=== PATIENT | male | born 1955 | race Caucasian/White ===

== ENCOUNTER 2019-03-07 17:54 | Inpatient (IN) | payer MEDICARE ==
[~2019-03-07] VITALS: Ht 175.3 cm; Wt 86.6 kg
--- NOTE | ~2019-03-07 | CON ---
[address] [address] CONSULTATION Name: FELIPE CHUN Room: [address] [place] .#: [id number] Admission: 03/07/19 Attend Phys: Gloria Garcia Discharge: 03/08/19 Date of : 55 Report #: [id number] THIS REPORT FOR: //name// CC: Curtis Fraser DATE OF SERVICE: 03/08/2019 CHIEF COMPLAINT: Chest pain and shortness of breath. HISTORY OF PRESENT ILLNESS: The patient is a 63-year-old smoker with history of 3-vessel CABG three years ago at [facility], had an episode of chest pressure. He took 1 nitroglycerin and his symptoms were partially relieved and by the time he got to the Emergency Room, his symptoms resolved completely. He was admitted for observation. Overnight, his first troponin is normal and second set is pending. His presenting ECG showed a sinus rhythm with nonspecific findings. Over the night, he has not had any more chest pain. This morning, he is symptom free. He has no complaints of chest pain or pressure. He denies orthopnea or PND. He has chronic dyspnea with exertion. He is still an active smoker. He has a pending stress test on Sunday with his usual tower erector helper, Dr. Holman, at [facility] as well as a pulmonary evaluation as the patient as noted above has significant smoking history. 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 We do not have any records, but most recently revascularization with 3-vessel bypass at [facility], which went well according to the patient. He has tobacco use history, hypertension, hyperlipidemia, diabetes mellitus. He has had remote PE. HOME MEDICATIONS: Include aspirin, losartan 25 mg daily, meloxicam, Lexapro, lovastatin 20 mg daily, metformin, metoprolol, albuterol, Atrovent, Symbicort. ALLERGIES: CODEINE. SOCIAL HISTORY: He is and he is a 1 pack per day smoker. REVIEW OF SYSTEMS: [address] [address] CONSULTATION Name: FELIPE CHUN Room: [address]#: [id number] Admission: 03/07/19 Attend Phys: Gloria Garcia Discharge: 03/08/19 Date of : 55 Report #: [id number] GENERAL: No fevers or chills. PULMONARY: No wheezing or cough. Positive dyspnea with exertion. CARDIOVASCULAR: Positive chest pain x 1. No orthopnea. No edema. ENDOCRINE: Positive diabetes. GASTROINTESTINAL: No nausea, vomiting, hematemesis or melena. GENITOURINARY: No dysuria or hematuria. HEMATOLOGIC: No anemia or bleeding disorders. RENAL: No history of kidney failure. PSYCHIATRIC: Positive depression, no anxiety. SKIN: Has no rashes. EYES: He does use glasses. EARS, NOSE, THROAT AND MOUTH: No decreased hearing. No bleeding from nose. Positive dentures. PHYSICAL EXAMINATION: VITAL SIGNS: Blood pressure is 137/83, pulse of 66, oximetry 98% on nasal cannula 1 liter. GENERAL: This is an obese, middle-aged male. He is alert, oriented, in no apparent distress. NECK: Supple. No jugular venous distention. CARDIOVASCULAR: Regular. I cannot hear a murmur or S3. LUNGS: Clear to auscultation bilaterally. ABDOMEN: Soft, nontender, nondistended. EXTREMITIES: No peripheral edema. SKIN: Warm and dry. Chest x-ray shows no acute cardiopulmonary process. IMPRESSION: 1. Chest pain and shortness of breath. I have arranged for further evaluation with a V/Q scan or pulmonary CTA given his remote history of pulmonary embolism. He is scheduled for a nuclear stress test this Sunday and to follow up with his usual tower erector helper on Sunday and I think this is reasonable as well. He is ruling out for myocardial infarction. We will check another cardiac troponin level. His resting ECG is unremarkable. 2. Tobacco use. Cessation is recommended. 3. Hypertension, stable. 4. Diabetes mellitus. He is on oral therapy. By: [id number] Arzate MD, FACC /nt
[2019-03-07 17:58] VITALS: BP 118/73
[2019-03-07 18:21] LABS: ABSOLUTE BASOPHILS 0.3 thou/uL (0.0-0.2); ABSOLUTE EOSINOPHILS 0.4 thou/uL (0.0-0.7); ABSOLUTE LYMPHOCYTES 5.3 thou/uL (0.8-5.3); ABSOLUTE MONOCYTES 1.1 thou/uL (0.0-1.2); ABSOLUTE NEUTROPHILS 5.3 thou/uL (1.6-8.1); BASOPHILS 2.1 %; EOSINOPHILS 3.3 %; HEMATOCRIT 40.3 % (42.0-52.0); HEMOGLOBIN 13.2 gm/dL (14.0-18.0); LYMPHOCYTES 43.2 %; MCH 28.4 pg (26.0-34.0); MCHC 32.9 g/dL (28.0-37.0); MCV 86.4 fL (80.0-100.0); MONOCYTES 8.9 %; MPV 9.1 fl. (7.2-11.1); NUCLEATED RBCS 0 /100WBC; PLATELET COUNT* 219 thou/uL (150-400); POLYS 42.5 %; RBC 4.67 mil/uL (4.50-6.00); RDW-CV 15.8 % (10.5-14.5); WBC 12.3 thou/uL (4.0-11.0)
[2019-03-07] MEDS ORDERED: ZANTAC 150MG T150 MG PO (18:29)
[2019-03-07] MEDS ORDERED: ASPIR 8181 M1 PO (18:29)
[2019-03-07] MEDS ORDERED: NORCO 10-325 T1 EACH PO (18:29)
[2019-03-07] MEDS ORDERED: MOBIC15 MG PO (18:30)
[2019-03-07] MEDS ORDERED: LOVASTATIN 20 M20 MG PO (18:30)
[2019-03-07] MEDS ORDERED: COZAAR 25 MG TA25 M2 PO (18:30)
[2019-03-07] MEDS ORDERED: HYZAAR 50-12.51 EACH PO (18:30)
[2019-03-07] MEDS ORDERED: LEXAPRO 10 MG T10 M1 PO (18:30)
[2019-03-07] MEDS ORDERED: SYMBICORT160 MCG/4. INH (18:31)
[2019-03-07] MEDS ORDERED: LOPRESSOR50 PO (18:31)
[2019-03-07] MEDS ORDERED: EXCEDRIN MIGRA1 EAC1 PO (18:32)
[2019-03-07] MEDS ORDERED: SPIRIVA INH (18:32)
[2019-03-07] MEDS ORDERED: IPRATROPIU0.2 MG/1 M INH (18:32)
[2019-03-07 18:33] LABS: APTT 27.6 Seconds (25.0-31.3); PROTIME 9.8 Seconds (9.20-11.50)
[2019-03-07] MEDS ORDERED: TYLENOL PM EX-1 EACH PO (18:33)
[2019-03-07 18:39] LABS: ANION GAP 12 mmol/L (7-16); BUN 27 mg/dL (7-18); CALCIUM 8.7 mg/dL (8.5-10.1); CHLORIDE 101 mmol/L (98-107); CO2 24 mmol/L (21-32); CREATININE 1.6 mg/dL (0.6-1.3); GLUCOSE 141 mg/dL (70-99); SODIUM 137 mmol/L (136-145)
[2019-03-07 18:43] LABS: ALBUMIN 3.7 g/dL (3.4-5.0); ALKALINE PHOSPHATASE 108 U/L (46-116); SGOT 18 U/L (15-37); SGPT 27 U/L (30-65); TOTAL BILIRUBIN 0.3 mg/dL (<0.1-1.0); TOTAL PROTEIN 7.1 g/dL (6.4-8.2); TROPONIN-I LEVEL <0.06 ng/mL (<0.06)
[2019-03-07 22:21] VITALS: BP 131/77
[2019-03-07 22:30] VITALS: BP 138/80
[2019-03-08 04:00] VITALS: BP 108/56
[2019-03-08 08:00] VITALS: BP 137/83
[2019-03-08] MEDS ORDERED: RANITIDINE 150150 M1 PO (12:30)
[2019-03-08] MEDS ORDERED: SPIRIVA INH (12:32)
[2019-03-08 12:37] VITALS: BP 136/83
[2019-03-08] MEDS ORDERED: COLACE100 MG PO (16:09)
[2019-03-08] MEDS ORDERED: MIRALAX17 GM PO (16:10)
[2019-03-08 17:27] VITALS: BP 140/74
[2019-03-08] MEDS ORDERED: METFORMIN HCL500 MG PO (17:29)
[2019-03-08 17:33] VITALS: BP 140/74
[2019-03-08 17:56] VITALS: BP 140/74
--- NOTE | 2019-03-10 16:40 | EKG ---
[place] [address] ELECTROCARDIOGRAM REPORT Name: FELIPE CHUN Room: [address] [place] [facility]#: [id number] Admission: 03/07/19 Attend Phys: Gloria Gracia Discharge: 03/08/19 Date of : 55 Report #: [id number] THIS REPORT FOR: //name// [facility] ED Test Date: 2019-03-07 Test Time: 17:56:06 Pat Name: FELIPE CHUN Department: Room: [facility] Gender: M Vp Cardiovascular Service Line: TERE : 1955 Requested By: Patricia Kenny Order Number: [id number] MD: Gilles Irizarry Measurements Intervals [place] Rate: 72 P: 17 LA: 131 QRS: -37 QRSD: 99 T: 4 QT: 419 QTc: 459 Interpretive Statements Sinus rhythm Left axis deviation Anteroseptal infarct, old No previous ECG available for comparison Electronically Signed On 03-10-2019 16:40:05 CDT by Gilles Irizarry [email or web address] <ELECTRONICALLY SIGNED> By: Gilles Irizarry MD, [facility] 03/10/19 1640 1756 1756 Gilles Irizarry MD, [facility] /EPI
== END 2019-03-08 18:15 | disposition home or self-care (01) | DRG 303 ==
LOC: M.ERS 17:54 → M.TBA-ER 18:46 → M.2W 22:08
PROVIDERS: Physician Assistant; ADMIT Internal Medicine
DX: I25.119 Atherosclerotic heart disease of native coronary artery with unspecified angina pectoris (principal); N17.9 Acute kidney failure, unspecified; I12.9 Hypertensive chronic kidney disease with stage 1 through stage 4 chronic kidney disease, or unspecified chronic kidney disease; N18.3 Chronic kidney disease, stage 3 (moderate); J44.9 Chronic obstructive pulmonary disease, unspecified; G43.909 Migraine, unspecified, not intractable, without status migrainosus; E78.5 Hyperlipidemia, unspecified; F17.210 Nicotine dependence, cigarettes, uncomplicated; E11.9 Type 2 diabetes mellitus without complications; I25.2 Old myocardial infarction; Z98.61 Coronary angioplasty status; Z79.82 Long term (current) use of aspirin; Z79.84 Long term (current) use of oral hypoglycemic drugs; Z79.899 Other long term (current) drug therapy; Z88.6 Allergy status to analgesic agent; Z86.711 Personal history of pulmonary embolism